=== PATIENT | female | born 2000 | race Caucasian/White ===

== ENCOUNTER 2024-06-07 20:45 | Emergency (ER) | payer BC ==
[~2024-06-07] VITALS: Ht 162.6 cm; Wt 57.6 kg
[2024-06-07 21:29] VITALS: BP 118/63; TEMP 98
[2024-06-07] MEDS ORDERED: TDAP [DIPH/PERTUSSIS/TET] 0.5 ML VIAL IM ONE (21:50)
[2024-06-07] MEDS: TDAP [DIPH/PERTUSSIS/TET] 0.5 ML VIAL IM ONE (21:55)
[2024-06-07 22:53] VITALS: O2SAT 99
== END 2024-06-07 22:54 | disposition home or self-care (01) ==
LOC: ER 20:48
DX: S61.011A Laceration without foreign body of right thumb without damage to nail, initial encounter (principal); F17.290 Nicotine dependence, other tobacco product, uncomplicated; W26.8XXA Contact with other sharp object(s), not elsewhere classified, initial encounter; Y93.89 Activity, other specified; Y92.89 Other specified places as the place of occurrence of the external cause; Y99.8 Other external cause status
CPT/HCPCS: 90715